=== PATIENT | male | born 1975 | race Two or more races ===

== ENCOUNTER 2021-01-06 18:41 | Emergency (ER) | payer SELFPAY ==
[~2021-01-06] VITALS: Ht 167.6 cm; Wt 68.0 kg
[2021-01-06 19:00] VITALS: BP 115/75
== END 2021-01-06 20:45 | disposition home or self-care (01) ==
LOC: ER 18:46
DX: F10.129 Alcohol abuse with intoxication, unspecified (principal); Y90.9 Presence of alcohol in blood, level not specified